=== PATIENT | female | born 1970 | race Caucasian/White ===

== ENCOUNTER → 2016-03-07 | Outpatient (CLI) | payer BC ==
--- NOTE | 2016-03-07 16:28 | US ---
EXAMINATION TYPE: US thyroid st tissue head/neck DATE OF EXAM: 03/07/2016 4:18 PM COMPARISON: No previous CLINICAL HISTORY: Wilfredo's thyroiditis. GLAND SIZE: Right Lobe: 3.5 x 1.3 x 1.3cm Overall Parenchyma: homogenous Left Lobe: 3.4 x 1.1 x 1.0cm Overall Parenchyma: homogeneous Isthmus Thickness: 0.2cm NODULES RIGHT: # of nodules measured on right: 0 LEFT: # of nodules measured on left: 0 ISTHMUS: # of nodules measured in the isthmus: 0 TECHNOLOGIST IMPRESSION: Homogeneous thyroid with no distinct nodules seen at this time, bilateral n kelly scanned, no abnormal lymphadenopathy noted. IMPRESSION: No discrete nodule is evident within the thyroid gland.
== END | disposition home or self-care (01) ==
LOC: RADUSWWP 16:06
PROVIDERS: ATTEND Allergy & Immunology
DX: E66.3 Overweight (principal)
CPT/HCPCS: 76536

== ENCOUNTER → 2016-03-31 | Outpatient (CLI) | payer BC ==
--- NOTE | 2016-03-31 16:25 | XR ---
EXAMINATION TYPE: XR lumbosacral spine min 4V DATE OF EXAM: 03/31/2016 4:19 PM CLINICAL HISTORY: pain COMPARISON: NONE TECHNIQUE: Frontal, lateral, and oblique images of the lumbar spine are obtained. FINDINGS: There are 5 lumbar type vertebral bodies identified. Superior endplate compression fractur e involving L1 with loss of height estimated at 10-15%. No additional fractures identified. Disc spac es demonstrate moderate narrowing. The overlying soft tissue appears unremarkable. IMPRESSION: Superior endplate compression fracture involving L1 with loss of height estimated at 10- 15%.
== END | disposition home or self-care (01) ==
LOC: RADXRMAIN 16:03
PROVIDERS: ATTEND Family Medicine
DX: M48.56XA Collapsed vertebra, not elsewhere classified, lumbar region, initial encounter for fracture (principal)
CPT/HCPCS: 72110

== ENCOUNTER → 2016-08-02 | Outpatient (CLI) | payer BC ==
--- NOTE | 2016-08-02 09:20 | XR ---
EXAMINATION TYPE: XR chest 2V DATE OF EXAM: 08/02/2016 HISTORY: R91.1 SPN. REFERENCE: Previous study dated 02/24/2016. FINDINGS: There are is a stable nodular density in the left upper lobe. This measures approximately 6 mm not allowing for magnification. The lungs are otherwise clear. Pleural spaces are clear. Heart si ze is upper limits of normal. IMPRESSION: STABLE LEFT-SIDED PULMONARY NODULE.
== END | disposition home or self-care (01) ==
LOC: RADXRMAIN 09:02
PROVIDERS: ATTEND Internal Medicine
DX: R91.1 Solitary pulmonary nodule (principal)
CPT/HCPCS: 71020

== ENCOUNTER → 2017-04-06 | Outpatient (CLI) | payer BC ==
--- NOTE | 2017-04-06 12:01 | XR ---
EXAMINATION TYPE: XR chest 2V DATE OF EXAM: 04/06/2017 COMPARISON: 08/02/2016 INDICATION: Asthma, history of nodules in chest TECHNIQUE: Frontal and lateral views of the chest are obtained. FINDINGS: The heart size is normal. The pulmonary vasculature is normal. The lungs are clear. No suspicious nodules are identified. Lung markings appear within normal limits . IMPRESSION: 1. No acute pulmonary process.
== END | disposition home or self-care (01) ==
LOC: RADXRMAIN 11:11
PROVIDERS: ATTEND Internal Medicine
DX: J45.909 Unspecified asthma, uncomplicated (principal)
CPT/HCPCS: 71046

== ENCOUNTER 2017-05-13 14:17 | Emergency (ER) | payer BC ==
[2017-05-13] MEDS ORDERED: IPRATROPIUM-ALBUTEROL 3 ML NEB INHALATION STA ×2 (14:46→16:09)
[2017-05-13] MEDS ORDERED: methylPREDNISolone SOD SUCCI 125 MG/2 ML VIAL IV STA (14:46)
--- NOTE | 2017-05-13 14:49 | ED ---
SOB HPI - General Chief Complaint: Shortness of Breath Stated Complaint: asthma Time Seen by Provider: 05/13/17 14:40 Source: patient, RN notes reviewed Mode of arrival: ambulatory Limitations: no limitations - History of Present Illness Initial Comments: This is a 47-year-old female history of asthma who states she's had symptoms of shortness of breath for the past week or so. She states that 10 days ago she ran a race in 3 she is short of breath coughed up some greenish brown phlegm started herself on some steroids and a Z-Blanka she did have some improvement but now she's getting more severely short of breath and exertional dyspnea. No fevers chills nausea vomiting sweats no earache sore throat or rhinorrhea. MD Complaint: shortness of breath, cough - Related Data Home Medications Medication Instructions Recorded Confirmed Albuterol Inhaler [Ventolin Hfa 1 - 2 puff INHALATION RT-Q6H PRN 05/13/17 Inhaler] Biotin 5 mg PO DAILY 05/13/17 05/13/17 Cetirizine HCl [Zyrtec] 10 mg PO DAILY 05/13/17 05/13/17 Furosemide [Lasix] 20 mg PO DAILY 05/13/17 05/13/17 Levothyroxine Sodium [Synthroid] 100 mcg PO DAILY 05/13/17 05/13/17 Loratadine [Claritin] 10 mg PO HS 05/13/17 05/13/17 Montelukast [Singulair] 10 mg PO HS 05/13/17 05/13/17 hydrALAZINE HCL [Apresoline] 25 mg PO TID 05/13/17 05/13/17 Previous Rx's Medication Instructions Recorded Amoxicillin/Potassium Clav 1 tab PO Q12HR #20 tab 05/13/17 [Augmentin 875-125 Tablet] Ipratropium/Albuterol Sulfate 1 puff INHALATION QID #1 inhaler 05/13/17 [Combivent Respimat Inhaler] predniSONE 20 mg PO BID #14 tab 05/13/17 Allergies Allergy/AdvReac Type Severity Reaction Status Date / Time Sulfa (Sulfonamide Allergy Rash/Hives Verified 05/13/17 14:49 Antibiotics) Review of Systems ROS Statement: Those systems with pertinent positive or pertinent negative responses have been documented in the HPI. ROS Other: All systems not noted in ROS Statement are negative. Past Medical History Past Medical History: Asthma History of Any Multi-Drug Resistant Organisms: None Reported Past Surgical History: Section, Orthopedic Surgery Past Psychological History: No Psychological Hx Reported Smoking Status: Never smoker Past Alcohol Use History: Rare Past Drug Use History: None Reported General Exam - General Exam Comments Initial Comments: This is a well-developed well-nourished awake alert oriented 3 female Limitations: no limitations General appearance: alert, anxious Head exam: Present: atraumatic, normocephalic, normal inspection Eye exam: Present: normal appearance, PERRL, EOMI. Absent: scleral icterus, conjunctival injection, periorbital swelling ENT exam: Present: normal exam, mucous membranes moist Neck exam: Present: normal inspection. Absent: tenderness, meningismus, lymphadenopathy Respiratory exam: Present: wheezes, decreased breath sounds. Absent: respiratory distress, rales, rhonchi, stridor Cardiovascular Exam: Present: normal rhythm, tachycardia, normal heart sounds. Absent: systolic murmur, diastolic murmur, rubs, gallop, clicks GI/Abdominal exam: Present: soft, normal bowel sounds. Absent: distended, tenderness, guarding, rebound, rigid Extremities exam: Present: normal inspection, full ROM, normal capillary refill. Absent: tenderness, pedal edema, joint swelling, calf tenderness Back exam: Present: normal inspection Neurological exam: Present: alert, oriented X3, CN II-XII intact Psychiatric exam: Present: normal affect, normal mood Skin exam: Present: warm, dry, intact, normal color. Absent: rash Course Vital Signs 05/13/17 05/13/17 05/13/17 14:34 15:09 15:17 Temperature 97.0 F L Pulse Rate 109 H 101 H 104 H Respiratory 18 18 Rate Blood Pressure 176/100 156/108 O2 Sat by Pulse 98 96 Oximetry 05/13/17 05/13/17 05/13/17 15:29 16:21 16:34 Temperature Pulse Rate 108 H 106 H 112 H Respiratory Rate Blood Pressure O2 Sat by Pulse Oximetry - Reevaluation(s) Reevaluation #1: 05/13/17 16:10 Reevaluation patient finds that she does feel improved she still has some diminished breath sounds with wheezes and left lower lobe. [facility] Decision Making - Medical Decision Making I did reevaluate the patient again she has increased aeration no wheezing is still some crepitus the left lower lobe which may with a pneumonitis. The patient will be discharged on oral steroids a Combivent inhaler as well as a different antibiotic she had been on a Zithromax Z-BLANKA in the past - Lab Data Result diagrams: 05/13/17 15:00 05/13/17 15:00 Lab Results 05/13/17 05/13/17 05/13/17 Range/Units 15:00 15:00 15:00 WBC 9.5 (3.8-10.6) k/uL RBC 5.77 H (3.80-5.40) m/uL Hgb 15.9 (11.4-16.0) gm/dL Hct 47.4 H (34.0-46.0) % MCV 82.0 (80.0-100.0) fL MCH 27.5 (25.0-35.0) pg MCHC 33.6 (31.0-37.0) g/dL RDW 13.3 (11.5-15.5) % Plt Count 307 (150-450) k/uL Neutrophils % 67 % Lymphocytes % 18 % Monocytes % 8 % Eosinophils % 4 % Basophils % 1 % Neutrophils # 6.4 (1.3-7.7) k/uL Lymphocytes # 1.8 (1.0-4.8) k/uL Monocytes # 0.8 (0-1.0) k/uL Eosinophils # 0.4 (0-0.7) k/uL Basophils # 0.1 (0-0.2) k/uL PT (9.0-12.0) sec INR (<1.2) APTT (22.0-30.0) sec D-Dimer (<0.60) mg/L FEU Sodium 142 (137-145) mmol/L Potassium 4.0 (3.5-5.1) mmol/L Chloride 104 (98-107) mmol/L Carbon Dioxide 26 (22-30) mmol/L Anion Gap 12 mmol/L BUN 13 (7-17) mg/dL Creatinine 0.90 (0.52-1.04) mg/dL Est GFR (CKD-EPI)AfAm 89 (>60 ml/min/1.73 sqM) Est GFR (CKD-EPI)NonAf 77 (>60 ml/min/1.73 sqM) Glucose 98 (74-99) mg/dL Calcium 9.4 (8.4-10.2) mg/dL Magnesium 1.9 (1.6-2.3) mg/dL Total Bilirubin 0.4 (0.2-1.3) mg/dL AST 28 (14-36) U/L ALT 39 (9-52) U/L Alkaline Phosphatase 114 (38-126) U/L Total Creatine Kinase 145 H (30-135) U/L CK-MB (CK-2) 1.2 (0.0-2.4) ng/mL CK-MB (CK-2) Rel Index 0.8 Troponin I <0.012 (0.000-0.034) ng/mL NT-Pro-B Natriuret Pep pg/mL Total Protein 7.7 (6.3-8.2) g/dL Albumin 4.5 (3.5-5.0) g/dL 05/13/17 05/13/17 Range/Units 15:00 15:00 WBC (3.8-10.6) k/uL RBC (3.80-5.40) m/uL Hgb (11.4-16.0) gm/dL Hct (34.0-46.0) % MCV (80.0-100.0) fL MCH (25.0-35.0) pg MCHC (31.0-37.0) g/dL RDW (11.5-15.5) % Plt Count (150-450) k/uL Neutrophils % % Lymphocytes % % Monocytes % % Eosinophils % % Basophils % % Neutrophils # (1.3-7.7) k/uL Lymphocytes # (1.0-4.8) k/uL Monocytes # (0-1.0) k/uL Eosinophils # (0-0.7) k/uL Basophils # (0-0.2) k/uL PT 9.6 (9.0-12.0) sec INR 1.0 (<1.2) APTT 24.9 (22.0-30.0) sec D-Dimer 0.23 (<0.60) mg/L FEU Sodium (137-145) mmol/L Potassium (3.5-5.1) mmol/L Chloride (98-107) mmol/L Carbon Dioxide (22-30) mmol/L Anion Gap mmol/L BUN (7-17) mg/dL Creatinine (0.52-1.04) mg/dL Est GFR (CKD-EPI)AfAm (>60 ml/min/1.73 sqM) Est GFR (CKD-EPI)NonAf (>60 ml/min/1.73 sqM) Glucose (74-99) mg/dL Calcium (8.4-10.2) mg/dL Magnesium (1.6-2.3) mg/dL Total Bilirubin (0.2-1.3) mg/dL AST (14-36) U/L ALT (9-52) U/L Alkaline Phosphatase (38-126) U/L Total Creatine Kinase (30-135) U/L CK-MB (CK-2) (0.0-2.4) ng/mL CK-MB (CK-2) Rel Index Troponin I (0.000-0.034) ng/mL NT-Pro-B Natriuret Pep 39 pg/mL Total Protein (6.3-8.2) g/dL Albumin (3.5-5.0) g/dL - EKG Data -: EKG Interpreted by Me EKG shows normal: sinus rhythm (Sinus tachycardia rate of 102. Interval 150 to QRS 74 QT/QTC 342/445 minimal voltage criteria for LVH no acute ST-T wave changes.) - Radiology Data Radiology results: report reviewed (I did review the imaging and report or is evidence of increased interstitial markings consistent with either atypical pneumonia or bronchitis), image reviewed Disposition Clinical Impression: Pneumonitis, Asthma exacerbation attacks Disposition: HOME SELF-CARE Condition: Good Instructions: Asthma (ED), Bronchospasm (ED), Pneumonitis (ED) Prescriptions: Amoxicillin/Potassium Clav [Augmentin 875-125 Tablet] 1 tab PO Q12HR #20 tab Ipratropium/Albuterol Sulfate [Combivent Respimat Inhaler] 1 puff INHALATION QID #1 inhaler predniSONE 20 mg PO BID #14 tab Referrals: Joey Rutherford DO [Primary Care Provider] - 1-2 days
[2017-05-13 15:29] LABS: Basophils # (A) 0.1 k/uL (0-0.2); Basophils % (A) 1 %; Eosinophils # (A) 0.4 k/uL (0-0.7); Eosinophils % (A) 4 %; HCT 47.4 % (34.0-46.0); HGB 15.9 gm/dL (11.4-16.0); Lymphocytes # (A) 1.8 k/uL (1.0-4.8); Lymphocytes % (A) 18 %; MCH 27.5 pg (25.0-35.0); MCHC 33.6 g/dL (31.0-37.0); Mean Platelet Volume 6.9; Monocytes # (A) 0.8 k/uL (0-1.0); Monocytes % (A) 8 %; Neutrophils # (A) 6.4 k/uL (1.3-7.7); Neutrophils % (A) 67 %; Platelet Count 307 k/uL (150-450); RBC 5.77 m/uL (3.80-5.40); RDW 13.3 % (11.5-15.5); WBC 9.5 k/uL (3.8-10.6)
[2017-05-13 15:38] LABS: D-Dimer 0.23 mg/L FEU (<0.60)
[2017-05-13 15:42] LABS: Creatine Kinase 145 U/L (30-135); Partial Thromboplastin Time 24.9 sec (22.0-30.0); Prothrombin Time 9.6 sec (9.0-12.0)
[2017-05-13 15:44] LABS: Albumin 4.5 g/dL (3.5-5.0); Calcium 9.4 mg/dL (8.4-10.2); Magnesium 1.9 mg/dL (1.6-2.3); Total Bilirubin 0.4 mg/dL (0.2-1.3); Total Protein 7.7 g/dL (6.3-8.2)
[2017-05-13 15:55] LABS: Creatine Kinase MB 1.2 ng/mL (0.0-2.4); Troponin I <0.012 ng/mL (0.000-0.034)
--- NOTE | 2017-05-13 16:00 | XR ---
EXAMINATION TYPE: XR chest 2V DATE OF EXAM: 05/13/2017 COMPARISON: 04/06/2017 HISTORY: Cough and shortness of breath TECHNIQUE: Frontal and lateral views of the chest are obtained. FINDINGS: There is diffuse interstitial prominence, increased from the prior. There is no focal air s pace opacity, pleural effusion, or pneumothorax seen. The cardiac silhouette size is within normal l imits. The osseous structures are intact. IMPRESSION: Diffuse interstitial prominence may can be seen in atypical pneumonia or bronchitis. No focal consolidation.
--- NOTE | 2017-05-13 17:50 | ED ---
Medical Decision Making - Medical Decision Making The patient does have an appointment to see Dr. Alegria at the end of this month I did suggest she call tomorrow to make a appointment sooner. - Lab Data Result diagrams: 05/13/17 15:00 05/13/17 15:00 Lab Results 05/13/17 05/13/17 05/13/17 Range/Units 15:00 15:00 15:00 WBC 9.5 (3.8-10.6) k/uL RBC 5.77 H (3.80-5.40) m/uL Hgb 15.9 (11.4-16.0) gm/dL Hct 47.4 H (34.0-46.0) % MCV 82.0 (80.0-100.0) fL MCH 27.5 (25.0-35.0) pg MCHC 33.6 (31.0-37.0) g/dL RDW 13.3 (11.5-15.5) % Plt Count 307 (150-450) k/uL Neutrophils % 67 % Lymphocytes % 18 % Monocytes % 8 % Eosinophils % 4 % Basophils % 1 % Neutrophils # 6.4 (1.3-7.7) k/uL Lymphocytes # 1.8 (1.0-4.8) k/uL Monocytes # 0.8 (0-1.0) k/uL Eosinophils # 0.4 (0-0.7) k/uL Basophils # 0.1 (0-0.2) k/uL PT (9.0-12.0) sec INR (<1.2) APTT (22.0-30.0) sec D-Dimer (<0.60) mg/L FEU Sodium 142 (137-145) mmol/L Potassium 4.0 (3.5-5.1) mmol/L Chloride 104 (98-107) mmol/L Carbon Dioxide 26 (22-30) mmol/L Anion Gap 12 mmol/L BUN 13 (7-17) mg/dL Creatinine 0.90 (0.52-1.04) mg/dL Est GFR (CKD-EPI)AfAm 89 (>60 ml/min/1.73 sqM) Est GFR (CKD-EPI)NonAf 77 (>60 ml/min/1.73 sqM) Glucose 98 (74-99) mg/dL Calcium 9.4 (8.4-10.2) mg/dL Magnesium 1.9 (1.6-2.3) mg/dL Total Bilirubin 0.4 (0.2-1.3) mg/dL AST 28 (14-36) U/L ALT 39 (9-52) U/L Alkaline Phosphatase 114 (38-126) U/L Total Creatine Kinase 145 H (30-135) U/L CK-MB (CK-2) 1.2 (0.0-2.4) ng/mL CK-MB (CK-2) Rel Index 0.8 Troponin I <0.012 (0.000-0.034) ng/mL NT-Pro-B Natriuret Pep pg/mL Total Protein 7.7 (6.3-8.2) g/dL Albumin 4.5 (3.5-5.0) g/dL 05/13/17 05/13/17 Range/Units 15:00 15:00 WBC (3.8-10.6) k/uL RBC (3.80-5.40) m/uL Hgb (11.4-16.0) gm/dL Hct (34.0-46.0) % MCV (80.0-100.0) fL MCH (25.0-35.0) pg MCHC (31.0-37.0) g/dL RDW (11.5-15.5) % Plt Count (150-450) k/uL Neutrophils % % Lymphocytes % % Monocytes % % Eosinophils % % Basophils % % Neutrophils # (1.3-7.7) k/uL Lymphocytes # (1.0-4.8) k/uL Monocytes # (0-1.0) k/uL Eosinophils # (0-0.7) k/uL Basophils # (0-0.2) k/uL PT 9.6 (9.0-12.0) sec INR 1.0 (<1.2) APTT 24.9 (22.0-30.0) sec D-Dimer 0.23 (<0.60) mg/L FEU Sodium (137-145) mmol/L Potassium (3.5-5.1) mmol/L Chloride (98-107) mmol/L Carbon Dioxide (22-30) mmol/L Anion Gap mmol/L BUN (7-17) mg/dL Creatinine (0.52-1.04) mg/dL Est GFR (CKD-EPI)AfAm (>60 ml/min/1.73 sqM) Est GFR (CKD-EPI)NonAf (>60 ml/min/1.73 sqM) Glucose (74-99) mg/dL Calcium (8.4-10.2) mg/dL Magnesium (1.6-2.3) mg/dL Total Bilirubin (0.2-1.3) mg/dL AST (14-36) U/L ALT (9-52) U/L Alkaline Phosphatase (38-126) U/L Total Creatine Kinase (30-135) U/L CK-MB (CK-2) (0.0-2.4) ng/mL CK-MB (CK-2) Rel Index Troponin I (0.000-0.034) ng/mL NT-Pro-B Natriuret Pep 39 pg/mL Total Protein (6.3-8.2) g/dL Albumin (3.5-5.0) g/dL Disposition Clinical Impression: Pneumonitis, Asthma exacerbation attacks Disposition: HOME SELF-CARE Condition: Good Instructions: Asthma (ED), Pneumonitis (ED), Bronchospasm (ED) Prescriptions: Amoxicillin/Potassium Clav [Augmentin 875-125 Tablet] 1 tab PO Q12HR #20 tab Ipratropium/Albuterol Sulfate [Combivent Respimat Inhaler] 1 puff INHALATION QID #1 inhaler predniSONE 20 mg PO BID #14 tab Referrals: Joey Rutherford DO [Primary Care Provider] - 1-2 days Armando Alegria MD [STAFF PHYSICIAN] - 1-2 days
[2017-05-13 18:49] VITALS: BP 133/84; PULSE 110; RESP 20; TEMP 98.4
== END 2017-05-13 18:30 | disposition home or self-care (01) ==
LOC: EC 14:17
DX: J45.901 Unspecified asthma with (acute) exacerbation (principal); J18.9 Pneumonia, unspecified organism; R00.0 Tachycardia, unspecified; Z79.899 Other long term (current) drug therapy; Z88.2 Allergy status to sulfonamides
CPT/HCPCS: 36415; 94640 ×2; 93005; 85379; 83880; 80053; 82550; 82553; 83735; 84484; 85025; 85610; 85730; 71046; 99285; 96374; J2930

== ENCOUNTER → 2017-09-05 | Outpatient (CLI) | payer BC ==
[2017-09-05 10:09] LABS: ALT 46 U/L (9-52); AST 30 U/L (14-36); Cholesterol 243 mg/dL (<200); HDL Cholesterol 76 mg/dL (40-60); LDL Cholesterol,Calculated 146 mg/dL (0-99); Triglycerides 106 mg/dL (<150)
== END | disposition home or self-care (01) ==
LOC: LABWHC1 09:10
PROVIDERS: ATTEND Internal Medicine Interventional Cardiology
DX: E78.2 Mixed hyperlipidemia (principal)
CPT/HCPCS: 36415; 80061; 84450; 84460

== ENCOUNTER → 2018-07-04 | Outpatient (CLI) | payer BC ==
[2018-07-05 00:47] LABS: Anion Gap 8.5 mmol/L (4.00-12.00); Carbon Dioxide 26.5 mmol/L (21.6-31.8); Potassium 4.2 mmol/L (3.5-5.5)
[2018-07-05 00:48] LABS: Magnesium 2.1 mg/dL (1.5-2.4)
== END | disposition home or self-care (01) ==
LOC: LABWHC1 15:50
PROVIDERS: ATTEND Nurse Practitioner Adult Health
DX: I10 Essential (primary) hypertension (principal)
CPT/HCPCS: 36415; 80048; 83735

== ENCOUNTER → 2018-10-24 | Outpatient (CLI) | payer BC ==
--- NOTE | 2018-10-25 22:12 | BD ---
EXAMINATION TYPE: Axial Bone Density DATE OF EXAM: 10/24/2018 COMPARISON: NONE CLINICAL HISTORY: 48-year-old female screening for osteoporosis : ablation 15 years ago- tubes tied Height: 68 Weight: 232.7 FRAX RISK QUESTIONS: Alcohol (3 or more units per day): no Family History (Parent hip fracture): no Glucocorticoids (More than 3mos): yes (Ex: prednisone, prednisolone, methylprednisolone, dexamethasone, and hydrocortisone). History of Fracture in Adulthood: yes Secondary Osteoporosis: 1. Type 1 Diabetes: no 2. Hyperthyroidism: no 3. Menopause before 45: yes 4. Malnutrition: yes 5. Chronic liver disease: no Rheumatoid Arthritis: no Current Tobacco Use: no RISK FACTORS HISTORY OF: Spine Fracture: lumbar spine- Family History of Osteoporosis: yes Active: yes Diet low in dairy products/other sources of calcium: yes Postmenopausal woman: ablation 15 years ago Lost more than 2 inches in height since high school: no MEDICATIONS: oral steroids, inhalers, blood pressure meds, Singulair Thyroid Medications: thyroid How Lon years Additional History: EXAM MEASUREMENTS: Bone mineral densitometry was performed using the [employer] System. Bone mineral density about the R hip (g/cm2): 0.912 Bone mineral density about the L hip (g/cm2): 0.916 T Score values are as follows: -----R Neck: -0.9 -----L Neck: -0.9 -----R Total: -0.2 -----L Total: 0.1 Bone mineral density : baseline Bone mineral density about the R Wrist (g/cm2): 0.742 T Score values are as follows: -----Dist. R+U: 1.1 -----Prox. R+U: 0.4 -----Radius total: 1.1 Bone mineral density : baseline IMPRESSION: Normal (Values between +1 and -1 indicate normal bone mass) bone mineral density based on both T scor e and Z score values in both hips and right wrist. Consider repeating this study in 5 years or soone r if there is some new clinical indication. NOTE: T-SCORE=SD OF THE YOUNG ADULT MEAN.
== END | disposition home or self-care (01) ==
LOC: RADBDWWP 15:43
PROVIDERS: ATTEND Internal Medicine Gastroenterology
DX: R53.83 Other fatigue (principal); R10.13 Epigastric pain; Z79.52 Long term (current) use of systemic steroids
CPT/HCPCS: 77080

== ENCOUNTER → 2019-08-26 | Outpatient (CLI) | payer BC ==
--- NOTE | 2019-08-27 00:33 | CONS ---
CONSULTATION REASON FOR CONSULTATION: Sleep apnea consultation. This is a 49-year-old female patient referred to me by Dr. Wise due to concerns of sleep apnea. The patient was found to have some secondary erythrocytosis and then this obviously raises the concern for sleep apnea. She is asthmatic and she takes a combination of Breo and Singulair under the care of Dr. Alegria. She has also hypertension under the care of Dr. Patel and she is taking two different antihypertensive medications and this includes hydralazine and valsartan and despite that her blood pressure is still elevated. In terms of sleep apnea, we are not sure if she has a diagnosis. She snores. She likes to sleep on her side rather than her back. She has gained around 10 pounds over the years and there is no significant weight gain. She is a bit tired, yet there is no major hypersomnia or sleepiness. No history of any motor vehicle accident because of feeling drowsy or sleepy. No sleep paralysis. No hallucinations. No cataplexy. No restlessness in the lower extremities. Her father has obstructive sleep apnea utilizing a CPAP machine. Her sleep is not fragmented. She goes to bed around 10 p.m., wakes up at 5:30 a.m. in the morning. 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 PAST MEDICAL HISTORY: 1. Secondary erythrocytosis. 2. Wilfredo's thyroiditis. 3. Hypertension. 4. Bronchial asthma. 5. Grinding of the teeth/bruxism wears a bite guard. PAST SURGICAL HISTORY: Past surgical history includes left elbow repair for tennis elbow and left wrist repair for carpal tunnel disease. DRUG ALLERGIES: SULFA. MEDICATIONS: Outpatient medications include Synthroid 100 mcg p.o. q. day, hydralazine 50 mg p.o. 3 times a day, valsartan 80 mg p.o. q. day, aspirin 81 mg p.o. q. day, Singulair 10 mg p.o. q. day, Breo 200/25 one inhalation a day. SOCIAL HISTORY: Nonsmoker. No history of alcohol. No history of IV drugs. OCCUPATIONAL HISTORY: She is a teacher. FAMILY HISTORY: Father has obstructive sleep apnea. Hyperlipidemia is present in both parents. Father also had a stroke. REVIEW OF SYSTEMS: Fourteen-point review of system was done. Blood pressure is high. She is not having any headaches. No . No nausea, vomiting, or diarrhea or abdominal pain. No history of dysuria, frequency or urgency. No angina. No significant shortness of breath and her asthma is under good control. PHYSICAL EXAMINATION: VITAL SIGNS: BP is 186/91, pulse 72, respirations 16, temperature 97.4, saturation 98% on room air. Height is 5 feet 8 inches, weight is 236 and BMI 35.8 with a neck size of a 15-1/2 inches. GENERAL APPEARANCE: Calm, comfortable. HEAD: Atraumatic normocephalic. NECK: Supple. There is no JVD. No goiter or neck masses. Mallampati class IV. LUNGS: Clear to auscultation. HEART: Heart sounds are regular rate and rhythm. Normal S1, S2. No murmurs. ABDOMEN: Soft, nontender. No organomegaly. EXTREMITIES: No edema, no cyanosis or clubbing. IMPRESSION: 1. Secondary erythrocytosis, currently under investigation consider underlying obstructive sleep apnea especially that the patient has some anatomic features. She carries a body mass index of 35.8 and she has significant crowding of posterior pharynx with a Mallampati class 4. 2. History of grinding teeth/bruxism, wears a bite guard. 3. Bronchial asthma, currently inactive and stable on a combination of Breo and Singulair. 4. Hypertension. 5. Hypothyroidism/Wilfredo's thyroiditis. PLAN: 1. Encourage weight loss. 2. Implement good sleep hygiene measures. 3. Follow up with her assistant auditor regarding her elevated blood pressure. 4. Continue wearing the bite guard. 5. Proceed with a home sleep study to look for any significant obstructive sleep apnea and nocturnal oxygen desaturation contributing to her secondary erythrocytosis. 6. We will continue to follow. MMODL / IJN: [id number] /
== END | disposition home or self-care (01) ==
LOC: SLEEP 14:11
PROVIDERS: ATTEND Internal Medicine Critical Care Medicine
DX: D75.1 Secondary polycythemia (principal); J45.909 Unspecified asthma, uncomplicated; E03.9 Hypothyroidism, unspecified; E06.3 Autoimmune thyroiditis; G47.63 Sleep related bruxism; Z79.82 Long term (current) use of aspirin; Z79.899 Other long term (current) drug therapy; Z88.2 Allergy status to sulfonamides
CPT/HCPCS: 99211

== ENCOUNTER → 2020-01-06 | Outpatient (CLI) | payer BC ==
--- NOTE | 2020-01-07 08:35 | MM ---
Reason for exam: screening (asymptomatic). Last mammogram was performed 2 years and 11 months ago. History: Family history of breast cancer in maternal grandmother at age 50. Physical Findings: A clinical breast exam by your physician is recommended on an annual basis and results should be correlated with mammographic findings. MG 3D Screening Mammo W/Cad Bilateral CC and MLO view(s) were taken. Prior study comparison: January 26, 2017, bilateral MG 3d screening mammo w/cad. September 23, 2010, bilateral digital screening mammo w/CAD. There are scattered fibroglandular densities. There is no discrete abnormality. No significant changes when compared with prior studies. ASSESSMENT: Negative, BI-RAD 1 RECOMMENDATION: Routine screening mammogram of both breasts in 1 year.
== END | disposition home or self-care (01) ==
LOC: RADMAMWWP 08:19
PROVIDERS: ATTEND Obstetrics & Gynecology
DX: Z12.31 Encounter for screening mammogram for malignant neoplasm of breast (principal); Z80.3 Family history of malignant neoplasm of breast
CPT/HCPCS: 77063; 77067

== ENCOUNTER → 2020-04-14 | Outpatient (CLI) | payer BC ==
--- NOTE | 2020-04-14 08:42 | CT ---
EXAMINATION TYPE: CT sinus wo con DATE OF EXAM: 04/14/2020 COMPARISON: HISTORY: acute sinusitis CT DLP: 644 mGycm CONTRAST: None The paranasal sinuses are examined in the axial plane at 2 mm thick sections. Reconstructed images i n the coronal plane were obtained. There is mild dental amalgam scatter artifact No air-fluid levels are evident within the sinuses. The maxillary sinuses are clear. The ethmoid air cells are clear. The sphenoid sinuses are clear. The frontal sinuses are clear. The septum is evaluated. There is septal deviation to the right. The ostiomeatal units are patent. There is a left danny bullosa. IMPRESSIONS: 1. No mucosal thickening to suggest acute or chronic sinusitis. 2. Right septal deviation.
== END | disposition home or self-care (01) ==
LOC: RADCTMAIN 07:19
PROVIDERS: ATTEND Otolaryngology
DX: J01.90 Acute sinusitis, unspecified (principal); J34.2 Deviated nasal septum
CPT/HCPCS: 70486

== ENCOUNTER → 2020-12-30 | Outpatient (CLI) | payer BC ==
--- NOTE | 2020-12-31 08:10 | XR ---
EXAMINATION TYPE: XR hand complete bilateral DATE OF EXAM: 12/30/2020 COMPARISON: None HISTORY: Chronic pain TECHNIQUE: 3 views bilateral hands each FINDINGS: Right hand: No acute fracture or dislocation is evident. There is mild diffuse joint space narrowing. Soft tissues appear normal. There may be an old fracture of the ulnar aspect distal phalanx index fi nger. Left ankle no acute fracture or dislocation is evident. Mild diffuse joint space narrowing is present . Soft tissues are normal. IMPRESSION: 1. No acute osseous abnormality bilateral hands. 2. Mild loss of joint space bilaterally.
== END ==
LOC: RADXRMAIN 15:57
PROVIDERS: ATTEND Family Medicine
DX: M79.641 Pain in right hand (principal); M79.642 Pain in left hand

== ENCOUNTER → 2021-01-07 | Outpatient (CLI) | payer BC ==
--- NOTE | 2021-01-12 09:22 | MM ---
Reason for exam: screening (asymptomatic). Last mammogram was performed 1 year ago. History: Patient history of other cancer. Family history of breast cancer in maternal grandmother at age 50. Physical Findings: A clinical breast exam by your physician is recommended on an annual basis and results should be correlated with mammographic findings. MG 3D Screening Mammo W/Cad Bilateral CC and MLO view(s) were taken. Prior study comparison: January 06, 2020, bilateral MG 3d screening mammo w/cad. January 26, 2017, bilateral MG 3d screening mammo w/cad. There are scattered fibroglandular densities. There is chronic nodularity in the left breast anteriorly. No significant changes when compared with prior studies. ASSESSMENT: Benign, BI-RAD 2 RECOMMENDATION: Routine screening mammogram of both breasts in 1 year.
== END | disposition home or self-care (01) ==
LOC: RADMAMWWP 16:26
PROVIDERS: ATTEND Obstetrics & Gynecology
DX: Z12.31 Encounter for screening mammogram for malignant neoplasm of breast (principal); Z80.3 Family history of malignant neoplasm of breast
CPT/HCPCS: 77063; 77067

== ENCOUNTER → 2021-02-11 | Outpatient (CLI) | payer BC ==
[2021-02-12 00:25] LABS: African American GFR (CKD) 62.9 (60.0-200.0); Anion Gap 14.2 mmol/L (10.00-18.00); BUN/Creat Ratio 16.58 Ratio (12.00-20.00); Blood Urea Nitrogen 19.4 mg/dL (9.0-27.0); Calcium 9.5 mg/dL (8.7-10.3); Carbon Dioxide 25.4 mmol/L (20.0-27.5); Magnesium 2.2 mg/dL (1.5-2.4); Non-African American GFR(CKD) 54.3 (60.0-200.0); Potassium 3.8 mmol/L (3.5-5.5)
== END | disposition home or self-care (01) ==
LOC: LABWHC1 14:59
PROVIDERS: ATTEND Nurse Practitioner Adult Health
DX: I10 Essential (primary) hypertension (principal)
CPT/HCPCS: 36415; 80048; 83735

== ENCOUNTER → 2021-03-24 | Outpatient (CLI) | payer BC ==
[2021-03-24 23:25] LABS: African American GFR (CKD) 79.6 (60.0-200.0); Anion Gap 3.7 mmol/L (10.00-18.00); BUN/Creat Ratio 19.73 Ratio (12.00-20.00); Calcium 9.4 mg/dL (8.7-10.3); Non-African American GFR(CKD) 68.7 (60.0-200.0); Potassium 4.3 mmol/L (3.5-5.5)
== END | disposition home or self-care (01) ==
LOC: LABWHC1 15:52
PROVIDERS: ATTEND Internal Medicine Interventional Cardiology
DX: I10 Essential (primary) hypertension (principal)
CPT/HCPCS: 36415; 80048

== ENCOUNTER → 2022-03-01 | Outpatient (CLI) | payer BC ==
--- NOTE | 2022-03-02 18:40 | MM ---
Reason for Exam: Screening (asymptomatic). Last mammogram was performed 1 year(s) and 2 month(s) ago. Patient History: Menarche at age 13. First Full-Term at age 24. Patient has history of breast feeding. Maternal grandmother had breast cancer, age 50. Risk Values: Staci 5 year model risk: 0.9%. NCI Lifetime model risk: 7.9%. Prior Study Comparison: 01/26/2017 Bilateral Screening Mammogram, [facility]. 01/06/2020 Bilateral Screening Mammogram, [facility]. 01/07/2021 Bilateral Screening Mammogram, [facility]. Tissue Density: There are scattered fibroglandular densities. Findings: Analyzed By CAD. Chronic nodularity medial subareolar left breast. There is no suspicious group of microcalcifications or new suspicious mass in either breast. Overall Assessment: Benign, BI-RAD 2 Management: Screening Mammogram of both breasts in 1 year. 1. Patient should continue monthly self breast exams. 2. A clinical breast exam by your physician is recommended on an annual basis. 3. This exam should not preclude additional follow-up of suspicious palpable abnormalities. Electronically signed and approved by: Juana rAguelles M.D. Radiologist
== END | disposition home or self-care (01) ==
LOC: RADMAMWWP 16:00
PROVIDERS: ATTEND Obstetrics & Gynecology
DX: Z12.31 Encounter for screening mammogram for malignant neoplasm of breast (principal); Z80.3 Family history of malignant neoplasm of breast
CPT/HCPCS: 77063; 77067

== ENCOUNTER → 2023-04-04 | Outpatient (CLI) | payer BC ==
--- NOTE | 2023-04-04 14:50 | BD ---
EXAMINATION TYPE: Axial Bone Density DATE OF EXAM: 04/04/2023 CLINICAL HISTORY: 53 years old Female. ICD-10 CODE: Z78.0 POST MENOPAUSAL Height: 67.5 in Weight: 224 lbs FRAX RISK QUESTIONS: Family History (Parent hip fracture): yes father History of Fracture in Adulthood: rt elbow age 43, lt elbow age 41, rt wrist age 50, lt foot fx age 2 8, l-spine fx age 38 RISK FACTORS HISTORY OF: Spine Fracture: yes l-spine fx age 38 History of Wrist Fracture: yes rt wrist age 50 Surgery to Wrist (left): age 45 MEDICATIONS: Thyroid Medications: yes Which medication: Synthroid How Lon years EXAM MEASUREMENTS: Bone mineral densitometry was performed using the [employer]. Bone mineral density about the R hip (g/cm2): 0.937 Bone mineral density about the L hip (g/cm2): 1.004 T Score values are as follows: -----R Neck: -1.3 -----L Neck: -0.9 -----R Total: -0.6 -----L Total: 0.0 Z Score values are as follows: -----R Neck: -1.2 -----L Neck: -0.7 -----R Total: -0.8 -----L Total: -0.3 Bone mineral density has: Decreased -3.4% since study of: 10/24/2018 FRAX%s: The graph provided illustrates a 18.3% chance for a major osteoporotic fx and a 0.7% chance f or the hips probability for fx in 10 years time. IMPRESSION: Osteopenia (T Score between -2.5 and -1). There is slightly increased risk of fracture and the patient may be considered for treatment. Re-Screen 2-5 years. NOTE: T-SCORE=SD OF THE YOUNG ADULT MEAN.
--- NOTE | 2023-04-05 08:21 | MM ---
Reason for Exam: Screening (asymptomatic). Last mammogram was performed 1 year(s) and 1 month(s) ago. Patient History: Menarche at age 13. First Full-Term at age 24. Postmenopausal. Patient has history of breast feeding. Maternal grandmother had breast cancer, age 50. Risk Values: Staci 5 year model risk: 1.0%. NCI Lifetime model risk: 7.7%. Prior Study Comparison: 01/06/2020 Bilateral Screening Mammogram, [facility]. 01/07/2021 Bilateral Screening Mammogram, [facility]. 03/01/2022 Bilateral MG 3D screening mammo w/cad, [facility]. Tissue Density: There are scattered fibroglandular densities. Findings: Analyzed By CAD. There is no suspicious group of microcalcifications or new suspicious mass in either breast. Overall Assessment: Negative, BI-RAD 1 Management: Screening Mammogram of both breasts in 1 year. . Patient should continue monthly self-breast exams. A clinical breast exam by your physician is recommended on an annual basis. This exam should not preclude additional follow-up of suspicious palpable abnormalities. Note on Staci scores and lifetime risk: 1. A Staci score greater than 3% is considered moderate risk. If this is the case, consider specialist referral to assess eligibility for a risk reducing agent. 2. If overall lifetime risk for the development of breast cancer is 20% or higher, the patient may qualify for future screening with alternating mammogram and breast MRI. Electronically signed and approved by: Kirby Dougherty M.D. Radiologis
== END | disposition home or self-care (01) ==
LOC: RADMAMWWP 06:53
PROVIDERS: ATTEND Obstetrics & Gynecology
DX: Z12.31 Encounter for screening mammogram for malignant neoplasm of breast (principal); M85.89 Other specified disorders of bone density and structure, multiple sites; Z78.0 Asymptomatic menopausal state
CPT/HCPCS: 77063; 77067; 77080

== ENCOUNTER → 2024-05-09 | Outpatient (CLI) | payer BC ==
--- NOTE | 2024-05-09 16:29 | XR ---
EXAMINATION TYPE: XR abdomen 2V DATE OF EXAM: 05/09/2024 COMPARISON: NONE HISTORY: Generalized abdominal pain, diarrhea TECHNIQUE: Upright and supine views of the abdomen were obtained. FINDINGS: Small bowel demonstrates no evidence for dilatation or air fluid levels. Gas and fecal material is seen in non-distended colon. Moderate amount stool is present within the ri ght colon. No convincing evidence for pneumoperitoneum. Right-sided pelvic phleboliths. The lung bases are clear. The osseous structures are intact. IMPRESSION: Overall nonobstructive bowel gas pattern. Moderate amount of stool is present within the right colon. [facility], , 05/09/2024 4:27 PM
== END | disposition home or self-care (01) ==
LOC: RADXRMAIN 16:10
PROVIDERS: ATTEND Family Medicine
DX: R19.7 Diarrhea, unspecified (principal); R19.5 Other fecal abnormalities
CPT/HCPCS: 74019